=== PATIENT | female | born 1985 | race Caucasian/White ===

== ENCOUNTER 2019-08-28 16:27 | Observation (INO) | payer OTHER, SELFPAY ==
[2019-08-28 16:43] VITALS: TEMP 36.6
[2019-08-28] MEDS: DEXTROSE 5%/LACTATED RINGERS 1,000 ML 999 ML IV CONT (17:22)
[2019-08-28] MEDS: ONDANSETRON INJ 4 MG/2 ML VIAL IV PUSH (17:23)
[2019-08-28 17:33] VITALS: BMI 23.8
--- NOTE | 2019-08-28 17:34 | OBADM ---
This patient, Camilla Walter, admitted to the OB room Labor/Delivery/Recovery 120 for observation. Patient/family oriented to hospital policies and general routines including ID bracelet, bed and alarms, visiting hours, pain management, procedures, bathroom and other care routines, personal items, smoking policy, room service/diet, and visiting hours. Patient/Family are encouraged to report perceived risks to care and to ask questions if they do not understand what they are told or what they should do.
[2019-08-28 17:50] VITALS: PULSE 94; O2SAT 100
--- NOTE | 2019-09-02 11:54 | PM.OBTRLD ---
OB - Triage/Final Diagnosis Final Diagnosis (1) Nausea and vomiting during : Code(s): O21.9 - Vomiting of , unspecified Status: Acute
== END 2019-08-28 18:05 | disposition home or self-care (01) ==
PROVIDERS: Admitting Provider Obstetrics & Gynecology; PCP Family Medicine; Visit Provider Obstetrics & Gynecology
DX: O21.2 Late vomiting of pregnancy (principal); Z3A.37 37 weeks gestation of pregnancy
CPT/HCPCS: 96374; G0378; G0379; J2405; J7121

== ENCOUNTER 2019-09-07 11:18 | Outpatient (CLI) | payer OTHER, SELFPAY ==
[2019-09-07 12:07] LABS: Hematocrit 32.2 % (37.0-47.0); Hemoglobin 10.2 g/dL (12.0-15.0)
[2019-09-08 07:53] LABS: Rapid Plasma Reagin Non-Reactive (NonReactive)
== END 2019-09-07 11:19 | disposition home or self-care (01) ==
PROVIDERS: PCP Family Medicine; Visit Provider Obstetrics & Gynecology
DX: Z01.818 Encounter for other preprocedural examination (principal)
CPT/HCPCS: 36415; 85014; 85018; 86592; 86850; 86900; 86901

== ENCOUNTER 2019-09-08 05:23 | Inpatient (IN) | payer OTHER, SELFPAY ==
--- NOTE | 2019-08-24 13:51 | PC.NURSE ---
VERIFIED WITH OR SCHEDULE AND PATIENT--C/S ON 09/08/19 AT 0730 PATIENT GIVEN REQUISITION FOR LAB DRAWN ON 09/07/19
[2019-09-08] VITALS (57 sets, daily range): BP systolic 108–153; BP diastolic 50–110; PULSE 66–95; RESP 12–16; TEMP 36.3–37.1; O2SAT 97–100; BMI 24.4
[2019-09-08] MEDS: LACTATED RINGERS 1,000 ML 999 ML IV CONT ×2 (05:59→07:37)
[2019-09-08 06:04] LABS: Basophils Percent Auto 0.4 % (0.2-1.2); Eosinophils Absolute Auto 0.1 K/mm3 (0-0.3); Eosinophils Percent Auto 0.5 % (0-4.4); Hematocrit 33.2 % (37.0-47.0); Hemoglobin 10.6 g/dL (12.0-15.0); Immature Granulocyte Absolute 0.09 K/mm3 (0.00-0.031); Immature Granulocyte Percent A 0.9 % (0-0.5); Lymphocytes Absolute Auto 2.65 K/mm3 (0.9-3.2); Lymphocytes Percent Auto 25.7 % (18.3-44.2); Mean Corpuscular HGB Conc 31.9 g/dl (32-36); Mean Corpuscular Volume 87.6 fl (80-100); Mean Platelet Volume 12.7 fl (7.4-10.4); Monocytes Absolute Auto 0.5 K/mm3 (0.1-0.6); Neutrophils Percent Auto 67.5 % (45.5-73.1); Platelet Count Result 232 k/mm3 (150-375); Red Blood Count 3.79 M/mm3 (4.2-5.4); Red Cell Distribution Width 14.1 % (11.5-14.5); White Blood Count 10.3 K/mm3 (4.5-10.0)
--- NOTE | 2019-09-08 07:01 | PM.IMHP ---
H&P: HPI History of Present Illness Chief complaint: SECTION Narrative: Camilla Walter is a 33 year old female presents for repeat section. Prior section at term secondary to breech presentation. No sig issues with this , records on chart. PMFSH Family History Family History Father Esophageal cancer Social History Social History Smoking status: Smoker, status unknown Alcohol intake: current Substance use: never Spiritual care concerns: No Meds Home Medications and Allergies Home Medications Medication Instructions Recorded Confirmed Type PNV cmb#95-ferrous fumarate-FA 1 tablet PO DAILY 08/24/19 08/24/19 History [] fluoxetine [Prozac] 20 mg PO DAILY 08/24/19 08/24/19 History levothyroxine 75 mcg PO DAILY 08/24/19 08/24/19 History Allergies Allergy/AdvReac Type Severity Reaction Status Date / Time No Known Allergies Allergy Mild Verified 08/24/19 13:32 Vital Signs Vital Signs - 24 hr 09/08/19 06:00 09/08/19 06:01 09/08/19 06:15 Pulse Rate 82 83 84 Blood Pressure 121/79 118/83 126/82 09/08/19 06:30 09/08/19 06:45 09/08/19 07:00 Pulse Rate 84 79 83 Blood Pressure 128/91 H 136/91 H 118/81 Exam Const: General: cooperative Nutritional Appearance: well nourished Limitations: no limitations Resp: Auscultation: clear to auscultation bilaterally Cardio: Rate: regular rate Rhythm: regular rhythm GI: Inspection: incision and other (FH 40cm/FHT 130-140) H&P: Results Labs Labs: Short CBC 09/08/19 Range/Units 05:54 WBC 10.3 H (4.5-10.0) K/mm3 Hgb 10.6 L (12.0-15.0) g/dL Hct 33.2 L (37.0-47.0) % Plt Count 232 (150-375) k/mm3 Assessment and Plan Additional Plan term for repeat section
--- NOTE | 2019-09-08 07:17 | LDADM ---
This patient, Camilla Walter, was admitted to Labor/Delivery/Recovery 120 on 09/08/19 at 05:23. Plans for labor, pain management and were discussed with patient. Patient/family oriented to hospital policies and general routines including ID bracelet, bed and alarms, visiting hours, pain management, procedures, bathroom and other care routines, personal items, smoking policy, room service/diet and guest tray routines, security routines, and visiting hours. Patient/Family are encouraged to report perceived risks to care and to ask questions if they do not understand what they are told or what they should do. See OBIX for further documentation.
--- NOTE | 2019-09-08 07:29 | WPDANESEPPF ---
Anes - Initial Pre Proc Eval Procedure: Operation Date: 09/08/19 07:30 Proposed Procedures p Repeat Section - Jorje Acevedo MD Date/Time: 09/08/19 07:29 Surgeon: Jorje Acevedo MD Pre Op Diagnosis: SECTION Patient Data Age: 33 Gender: F Height: 5 ft 9 in Weight: 75 kg Last Vital Signs Pulse 75 09/08/19 07:15 BP 122/84 09/08/19 07:15 Allergies Allergy/AdvReac Type Severity Reaction Status Date / Time No Known Allergies Allergy Mild Verified 08/24/19 13:32 Home Medications Medication Instructions Recorded Confirmed Type PNV cmb#95-ferrous fumarate-FA 1 tablet PO DAILY 08/24/19 08/24/19 History [] fluoxetine [Prozac] 20 mg PO DAILY 08/24/19 08/24/19 History levothyroxine 75 mcg PO DAILY 08/24/19 08/24/19 History Laboratory Tests 09/08/19 05:54 WBC 10.3 K/mm3 H K/mm3 (4.5-10.0) RBC 3.79 M/mm3 L M/mm3 (4.2-5.4) Hgb 10.6 g/dL L g/dL (12.0-15.0) Hct 33.2 % L % (37.0-47.0) MCV 87.6 fl fl (80-100) MCH 28.0 pg pg (26-34) MCHC 31.9 g/dl L g/dl (32-36) RDW 14.1 % % (11.5-14.5) Plt Count 232 k/mm3 k/mm3 (150-375) MPV 12.7 fl H fl (7.4-10.4) Immature Gran % (Auto) 0.9 % H % (0-0.5) Neut % (Auto) 67.5 % % (45.5-73.1) Lymph % (Auto) 25.7 % % (18.3-44.2) [place] % (Auto) 5.0 % % (2.6-8.5) Eos % (Auto) 0.5 % % (0-4.4) Baso % (Auto) 0.4 % % (0.2-1.2) Lymph # (Auto) 2.65 K/mm3 K/mm3 (0.9-3.2) [place] # (Auto) 0.5 K/mm3 K/mm3 (0.1-0.6) Eos # (Auto) 0.1 K/mm3 K/mm3 (0-0.3) Baso # (Auto) 0.0 K/mm3 K/mm3 (0.0-0.1) Abs Immat Gran (auto) 0.09 K/mm3 H K/mm3 (0.00-0.031) Absolute Neuts (auto) 7.0 K/mm3 H K/mm3 (1.3-6.7) Absolute Nucleated RBC 0.0 K/mm3 K/mm3 (0.0-0.012) Nucleated RBC % 0.0 % % (0.0-0.2) Patient hx anesthesia problems: none Family hx anesthesia problems: none [facility] Past Medical History Medical History (Updated 09/08/19 @ 07:30 by Deuce Keen MD) Hypothyroidism Surgical History Surgical History Previous delivery, delivered Family History Family History Father Esophageal cancer Social History Social History Smoking status: Never smoker Alcohol intake: current Substance use: never Spiritual care concerns: No Anes - Eval Final PreProcedure Day of Procedure 09/08/19 07:29 Patient weight: normal Heart: regular rate and rhythm Lungs: clear to auscultation Airway: Mallampati scale class 1 Neurological: alert and oriented Last oral intake: >/= 8 hours ASA classification: II Emergent: no Anesthetic plan: proceed Anesthesia type and monitoring: regional spinal and standard monitoring Informed Consent: The patient's anesthetic plan and its attendant risks and benefits were discussed with the patient/family/POA. Questions were solicited and answers provided to the satisfaction of the patient/family/POA.
[2019-09-08] MEDS: ceFAZolin 2 GM/D5W 50 ML 2 GM/50 ML BAG IVPB (08:29)
--- NOTE | 2019-09-08 08:55 | PM.OBPRVD ---
OB - Delivery Note Procedure Procedure: Procedures Operation Date: 09/08/19 07:30 <No data on this case meets the specified criteria> Route of delivery: Specimen: Yes Estimated blood loss (mL): 500 Anesthesia type: Spinal Disposition: PACU [place] Baby Weeks of gestation at delivery: 39 gender: Male Weight (pounds): 7 Weight (ounces): 10 presentation: vertex score one minute: 8 score five minutes: 9 Narrative: Patient was prepped and draped in the usual sterile manner for this procedure. Pfannenstiel incision was made and the old scar was removed. Subcutaneous tissue was dissected to the fascia. Which was then extended bilaterally the length of the skin incision. Fascia was grasped superiorly and inferiorly and dissected dissected away from the rectus muscles. Peritoneum was readily entered bladder flap was developed and the uterus was scored with clear fluid noted. Vertex was delivered without difficulty. Suctioned nasal oropharynx. Rest of baby was delivered cord was clamped and the placenta was removed manually. Uterus was exteriorized cleared of membranes and clots and closed using 0 Monocryl running interlocking manner with good approximation and hemostasis noted. Small amount of oozing in the midsection was rendered hemostatic with a txsfar-lh-azxog suture of 0 Monocryl. Uterus was returned the abdomen gutters were cleared of serosanguineous fluid and clots and all subfascial tissue including the uterine incision was noted be hemostatic. Fascia was approximated 0 Vicryl from left angle to the midline in the right angle to midline in running manner for approximation. Subcutaneous tissue was irrigated cauterized in approximately 0 plain suture. [place] were then used to approximate skin edges. The procedure be in the immediate postop condition of mother and baby are both excellent.
[2019-09-08] MEDS: FLUOXETINE HCL 20 MG CAP PO (12:00)
[2019-09-08] MEDS: SIMETHICONE 80 MG TAB.CHEW PO (15:41)
[2019-09-08] MEDS: IBUPROFEN 600 MG TABLET PO ×2 (15:42→23:25)
[2019-09-09 04:30] VITALS: BP 109/64; PULSE 77; RESP 16; TEMP 36.6; O2SAT 98
[2019-09-09 05:39] LABS: Basophils Absolute Auto 0.1 K/mm3 (0.0-0.1); Basophils Percent Auto 0.3 % (0.2-1.2); Eosinophils Absolute Auto 0.1 K/mm3 (0-0.3); Eosinophils Percent Auto 0.5 % (0-4.4); Hematocrit 28.9 % (37.0-47.0); Hemoglobin 9.1 g/dL (12.0-15.0); Immature Granulocyte Absolute 0.08 K/mm3 (0.00-0.031); Immature Granulocyte Percent A 0.5 % (0-0.5); Lymphocytes Absolute Auto 2.62 K/mm3 (0.9-3.2); Mean Corpuscular HGB Conc 31.5 g/dl (32-36); Mean Corpuscular Hemoglobin 27.9 pg (26-34); Mean Corpuscular Volume 88.7 fl (80-100); Mean Platelet Volume 12.7 fl (7.4-10.4); Monocytes Absolute Auto 0.7 K/mm3 (0.1-0.6); Monocytes Percent Auto 4.9 % (2.6-8.5); Neutrophils Absolute Auto 11.1 K/mm3 (1.3-6.7); Neutrophils Percent Auto 75.8 % (45.5-73.1); Platelet Count Result 183 k/mm3 (150-375); Red Blood Count 3.26 M/mm3 (4.2-5.4); Red Cell Distribution Width 14.2 % (11.5-14.5); White Blood Count 14.6 K/mm3 (4.5-10.0)
[2019-09-09 08:00] VITALS: BP 119/73; PULSE 76; RESP 18; TEMP 36.6
[2019-09-09] MEDS: DOCUSATE SODIUM 100 MG CAPSULE PO ×2 (08:15→16:13)
[2019-09-09] MEDS: IBUPROFEN 600 MG TABLET PO ×3 (08:15→23:52)
[2019-09-09] MEDS: POLYSACCHARIDE IRON COMPLEX 150 MG CAPSULE PO ×2 (08:16→16:13)
[2019-09-09] MEDS: FLUOXETINE HCL 20 MG CAP PO (08:24)
[2019-09-09] MEDS: LEVOTHYROXINE SODIUM 75 MCG TABLET PO (08:24)
--- NOTE | 2019-09-09 11:23 | PM.OBPNVD ---
OB - PN: Subj Subjective Date/time seen: 09/09/19 11:23 Interval history: 33yo s/p rLTCS on 09/08. Pain well controlled. Mabulating without issues, tolerating diet. Passing flatus. Doing well, no issues. Patient comments: no complaints baby status: doing well [place] feeding status: exclusively bottle feeding OB - PN: Obj Data Labs CBC & Chem 7: 09/09/19 04:37 Labs: Laboratory Results - last 24 hr 09/09/19 04:37 WBC 14.6 H RBC 3.26 L Hgb 9.1 L Hct 28.9 L MCV 88.7 MCH 27.9 MCHC 31.5 L RDW 14.2 Plt Count 183 MPV 12.7 H Immature Gran % (Auto) 0.5 Neut % (Auto) 75.8 H Lymph % (Auto) 18.0 L [place] % (Auto) 4.9 Eos % (Auto) 0.5 Baso % (Auto) 0.3 Lymph # (Auto) 2.62 [place] # (Auto) 0.7 H Eos # (Auto) 0.1 Baso # (Auto) 0.1 Abs Immat Gran (auto) 0.08 H Absolute Neuts (auto) 11.1 H Absolute Nucleated RBC 0.0 Nucleated RBC % 0.0 OB - PN A/P Assessment and Plan (1) Delivery by section: Status: Acute Assessment and Plan: Routine / postop care Pain management Ambulate (2) Anemia affecting : Code(s): O99.019 - Anemia complicating , unspecified trimester Status: Acute Assessment and Plan: [place] Time Spent With Patient Time: Total time spent is greater than 50% in coordination of care (as documented) at patient's floor/unit and/or counseling patient: Review of Systems Constitutional: Constitutional: Reports no additional constitutional complaints Cardiovascular: Cardiovascular: Reports no additional cardiovascular complaints Respiratory: Respiratory: Reports no additional respiratory complaints Gastrointestinal: Gastrointestinal: Reports no additional gastrointestinal complaints Exam Const: General: comfortable and no acute distress Orientation/consciousness: patient oriented x3 Resp: Effort & Inspection: normal respiratory effort Auscultation: clear to auscultation bilaterally Cardio: Rate: regular rate GI: Other: soft, nontender, nondistended Psych: Appearance: grossly normal Affect: normal affect Attitude: cooperative Judgement: Good judgement present (Psych)
[2019-09-09] MEDS: SIMETHICONE 80 MG TAB.CHEW PO ×2 (11:46→16:12)
--- NOTE | 2019-09-09 12:44 | WPDANLDPN2 ---
Anes-Prog Note L&D Date/Time: 09/09/19 12:44 Comfortable throughout: section Neuraxial method: spinal Epidural/Spinal procedure site: clean & non-tender Neuro status: Neuro function grossly intact. Cardiovascular status: normal Respiratory status: normal Airway patency: baseline Mental status: baseline Post-Op hydration status: normal Vital Signs: Last Vital Signs Temp 36.6 C 09/09/19 08:00 Pulse 76 09/09/19 08:00 Resp 18 09/09/19 08:00 BP 119/73 09/09/19 08:00 Pulse Ox 98 09/09/19 04:30 I/O: Intake & Output 09/08/19 09/09/19 09/09/19 23:59 07:59 15:59 Intake Total 1000 500 300 Output Total 800 600 500 Balance 200 -100 -200 Post-procedural complaints: none Patient feedback: Patient satisfied with anesthetic care.
--- NOTE | 2019-09-09 12:44 | WPDANLDNPN2 ---
Anes-Prog Note L&D-Neuraxial Date/Time: 09/09/19 12:44 Neuraxial medications: intrathecal PF morphine Opiod-related complaints: none Patient feedback: Patient satisfied with post-operative pain management.
[2019-09-09 20:00] VITALS: BP 121/70; PULSE 90; RESP 16; TEMP 36.6; O2SAT 97
[2019-09-10] MEDS: SIMETHICONE 80 MG TAB.CHEW PO ×2 (04:37→11:57)
[2019-09-10] MEDS: IBUPROFEN 600 MG TABLET PO ×2 (05:33→11:58)
[2019-09-10] MEDS: LEVOTHYROXINE SODIUM 75 MCG TABLET PO (05:33)
[2019-09-10 07:30] VITALS: BP 125/78; PULSE 74; RESP 16; TEMP 36.9; O2SAT 99
[2019-09-10] MEDS: DOCUSATE SODIUM 100 MG CAPSULE PO (08:35)
[2019-09-10] MEDS: POLYSACCHARIDE IRON COMPLEX 150 MG CAPSULE PO (08:35)
[2019-09-10] MEDS: FLUOXETINE HCL 20 MG CAP PO (08:35)
--- NOTE | 2019-09-10 09:09 | PM.OBDSVD ---
DS: Diagnosis Admitting Diagnosis Admitting Diagnosis: Anemia complicating , unspecified trimester OB - DS: Summary OB Procedures : None OB Procedures Intrapartum: OB Procedures: : None Peripartum Data Procedures: Procedures Operation Date: 09/08/19 07:30 Actual Procedures Side Surgeon p Repeat Section Jorje Acevedo MD Time Spent with Patient Time attestation: Total time spent providing and/or coordinating discharge services: Discharge Plan Discharge Discharging Clinician: Jorje Acevedo Patient Disposition: Home, Self-Care Activity: as tolerated Diet: as tolerated Wound Care Instructions: follow printed instructions Patient Instructions: Antibiotic Form Stand Alone Forms: General Discharge Information Follow-up/Referrals: Jorje Acevedo MD [Physician] - 1 Week Discharge Medications: New hydrocodone-acetaminophen 5-325 mg Tablet 1 tab PO Q3H PRN (Reason: Moderate Pain (4-6)) Qty: 20 RF: 0 ibuprofen 600 mg Tablet 600 mg PO Q6H PRN (Reason: Cramping) Qty: 30 RF: 0 Continued levothyroxine 75 mcg Tablet 75 mcg PO DAILY RF: 0 fluoxetine [Prozac] 20 mg Capsule 20 mg PO DAILY RF: 0 PNV cmb#95-ferrous fumarate-FA [] 28 mg iron- 800 mcg Tablet 1 tablet PO DAILY RF: 0 Date of admission: 09/08/19 05:23 Primary Care Provider: Darrin Blake Admitting Provider: Jorje Acevedo Attending physician on admission: Jorje Acevedo
[2019-09-11 09:36] VITALS: BP 114/81; PULSE 73; RESP 16; TEMP 36.6
== END 2019-09-10 12:17 | disposition home or self-care (01) | DRG 788 ==
LOC: ANHLDR 05:40 → ANHOB2 11:32
PROVIDERS: Admitting Provider Obstetrics & Gynecology; PCP Family Medicine; Visit Provider Obstetrics & Gynecology
PROC: 10D00Z1 Extraction of Products of Conception, Low, Open Approach (ICD-10-PCS; CPT 59514; principal; 2019-09-08 07:30)
DX: O34.211 Maternal care for low transverse scar from previous cesarean delivery (principal); Z37.0 Single live birth; Z3A.39 39 weeks gestation of pregnancy; O99.284 Endocrine, nutritional and metabolic diseases complicating childbirth; E03.9 Hypothyroidism, unspecified
CPT/HCPCS: 36415; 85025; A9270; J0131; J0690; J1200; J1885; J2274; J2370; J2590; J3010; J7120

== ENCOUNTER 2020-06-26 01:57 | Outpatient (CLI) | payer SELFPAY ==
[2020-06-26 18:35] LABS: SARS-CoV-2 RNA PCR Negative
== END 2020-06-26 01:58 | disposition home or self-care (01) ==
LOC: ANHCOVIDDT 01:57
PROVIDERS: PCP Family Medicine; Visit Provider Surgery Plastic and Reconstructive Surgery
DX: Z01.812 Encounter for preprocedural laboratory examination (principal); Z20.828 Contact with and (suspected) exposure to other viral communicable diseases
CPT/HCPCS: 87635; C9803; U0003

== ENCOUNTER 2020-06-29 00:43 | Day surgery (SDC) | payer OTHER, SELFPAY ==
[2020-06-20 13:30] VITALS: BMI 22.1
--- NOTE | 2020-06-28 13:25 | WPDANESEPPF ---
Anes - Initial Pre Proc Eval Procedure: Operation Date: 06/29/20 11:30 Proposed Procedures p Bilateral Breast Augmentation - Ashish Pettit MD Date/Time: 06/28/20 13:25 Surgeon: Ashish Pettit MD Pre Op Diagnosis: micromastia Patient Data Age: 34 Gender: F Height: 5 ft 9 in Weight: 68 kg Allergies Allergy/AdvReac Type Severity Reaction Status Date / Time No Known Allergies Allergy Mild Verified 06/29/20 10:13 Home Medications Medication Instructions Recorded Confirmed Type fluoxetine [Prozac] 20 mg PO DAILY 08/24/19 06/29/20 History levothyroxine 75 mcg PO DAILY 08/24/19 06/29/20 History carisoprodol 350 mg tablet 350 mg PO TID PRN #21 tablet 06/15/20 06/20/20 Rx docusate sodium 100 mg capsule 100 mg PO DAILY #14 cap 06/15/20 06/20/20 Rx ondansetron HCl 4 mg tablet 4 mg PO Q8H #28 tablet 06/15/20 06/20/20 Rx oxycodone-acetaminophen 5 mg-325 1 tablet PO Q6H PRN #15 tablet 06/15/20 06/20/20 Rx mg tablet norethindrone-e.estradiol-iron 1 tablet PO DAILY 06/20/20 06/20/20 History [[place] 08/02 (28)] Patient hx anesthesia problems: none Family hx anesthesia problems: none PMFSH Past Medical History Medical History (Updated 06/28/20 @ 13:25 by Eduardo Mejia MD) Hypothyroidism Migraine Surgical History Surgical History Previous delivery, delivered Family History Family History Father Esophageal cancer Social History Social History Smoking status: Never smoker Alcohol intake: current Substance use: never Living arrangements: with family Spiritual care concerns: No Anes - Eval Final PreProcedure Day of Procedure 06/28/20 13:25 Patient weight: normal Heart: regular rate and rhythm Lungs: clear to auscultation Airway: Mallampati scale class II Neurological: alert and oriented Last oral intake: >/= 8 hours ASA classification: II Emergent: no Anesthetic plan: proceed Anesthesia type and monitoring: general LMA and standard monitoring Informed Consent: The patient's anesthetic plan and its attendant risks and benefits were discussed with the patient/family/POA. Questions were solicited and answers provided to the satisfaction of the patient/family/POA.
[2020-06-29] VITALS (9 sets, daily range): BP systolic 116–132; BP diastolic 68–84; PULSE 79–119; RESP 18–20; TEMP 35.8–36.1; O2SAT 98–100
[2020-06-29] MEDS: LACTATED RINGERS 1,000 ML 30 ML IV CONT ×2 (10:08→12:51)
--- NOTE | 2020-06-29 10:57 | WPDHPUPDATE1 ---
History and Physical Update Update Date/Time: 06/29/20 10:57 History and Physical has been reviewed, including an updated exam of the patient. There are NO changes in the patient's condition. Risks, benefits, and alternatives have been discussed and questions answered. Patient agrees to proceed with procedure.
--- NOTE | 2020-06-29 11:24 | PM.PROC ---
Procedure Note - Detailed Date of procedure: 06/29/20 Pre-op diagnosis: micromastia Post-op diagnosis: same Procedure performed: Bilateral Augmentation Mammaplasty Description of procedure: She is here today for bilateral breast augmentation. Previously and again today the risks, benefits, alternatives were discussed in extensive detail. I wanted her to be very realistic about the risks involved as well as expectations. We discussed medial positioning of the implants cleavage and gave very honest answers as to where the implants would be. Discussed her natural anatomy. Discussed we could and could not accomplish and realistic expectations of outcome. I want to make sure she was well informed as this was a concern. We discussed aftercare and what to monitor for. Made sure answered all of her questions to her satisfaction today and consent was obtained. Marked in the preoperative holding area with their verification. The patient was taken to the operating room placed supine on the operating table. Anesthesia was provided by anesthesiology. A surgical time-out was taken. We cleansed the skin and 1% lidocaine and 0.25% Marcaine with epinephrine was used anesthetize as a field block. She was prepped and draped in a standard sterile fashion. Tegaderm nipple [place] were placed. A 15 blade used to make an incision along the inframammary fold. Dissection was continued at 45 degree angle until the chest wall as identified. I incised the pectoralis major along its inferior border and completely released the inferior border leaving the medial border intact. I created a subpectoral pocket in the appropriate dimensions based on our preoperative planning for the implant. I then copiously irrigated with saline solution and verified a strict hemostasis. Next the use a triple antibiotic and Betadine containing solution to irrigate the pocket. I washed my gloves with the triple antibiotic and Betadine solution. We washed the implant immediately upon opening it with this solution and only opened it when we needed it. I used implant funnel and no-touch technique. The implant was introduced into the pocket using the funnel. Having verified positioning of the implant this was closed using 2-0 Vicryl followed by 3-0 Monocryl in a running subcuticular 4-0 Monocryl followed by tissue glue. Fluffs, Jeremías wrap, and surgical bra were placed. Patient was awoke and taken to PACU without difficulty. All instrument sponge counts were correct at the end of the case. Anesthesia: GLMA Surgeon: Ashish Pettit MD Estimated blood loss (mL): 10 Drains: No Packing: No Pathology: none sent Complications: No immediate complications Condition: stable Disposition: PACU Findings: Dual plane 1 Bilateral Natrelle Inspira Soft Touch implants. Right: REF# [id number] SN [id number] Left: REF# [id number] SN [id number]
[2020-06-29] MEDS: ceFAZolin 2 GM/D5W 50 ML 2 GM/50 ML BAG IVPB (11:42)
[2020-06-29] MEDS: LIDO 1%/EPINEPHRINE 1:100,000 20 ML VIAL 60 ML INFILTRATE (12:04)
--- NOTE | 2020-06-29 12:19 | SUR.OPER ---
pharmacy antibiotic irrigation bottle/1000ml NS Irrigation/ [facility] 2119-4046-84, LOT [id number], EXP . IMPLANTS SOAKED IN ANTIBIOTIC SOLUTION IMMEDIATELY WHEN PLACED ON FIELD. RIGHT BREAST IMPLANT TO STERILE FIELD 1210. [facility] MAGGY INSPIRA SOFT TOUCH 485CC LOT [id number], EXP 2025-03-11. 1228 LEFT BREAST IMPLANT TO STERILE FIELD. [facility] 485CC LOT [id number] EXP 2023-10-27
[2020-06-29] MEDS: fentaNYL CITRATE INJ (*CRX) 100 MCG/2 ML VIAL 25 MCG IV PUSH ×4 (13:24→13:30)
== END 2020-06-29 14:43 | disposition home or self-care (01) ==
PROVIDERS: PCP Family Medicine; Visit Provider Surgery Plastic and Reconstructive Surgery
PROC: (CPT 19325; principal; 2020-06-29 11:30)
DX: Z41.1 Encounter for cosmetic surgery (principal); N64.82 Hypoplasia of breast; E03.9 Hypothyroidism, unspecified; G43.909 Migraine, unspecified, not intractable, without status migrainosus
CPT/HCPCS: 19325; J0690; J1100; J1580; J2250; J2405; J2704; J3010; J7120; L8000